=== PATIENT | female | born 1985 | race American Indian/Alaskan Native ===

== ENCOUNTER 2017-08-25 19:53 | Emergency (ER) | payer BC ==
[2017-08-25 20:43] VITALS: RESP 17; O2SAT 100
--- NOTE | 2017-08-25 20:51 | ED PDOC ---
Arrival/HPI - General Chief Complaint: Abdominal Pain Time Seen by Provider: 08/25/17 20:19 Historian: Patient - History of Present Illness Narrative History of Present Illness (Text): 08/25/17 20:47 31 year old female, whose PMH includes , who presents to the emergency department complaining of abdominal cramp like discomfort. Patient states her LMP was March and tested + for pregancy. Patient denies vaginal d/c and urinary complaints. No nausea, vomiting, diarrhea. Symptom Onset: Sudden Context: Home Past Medical History - Provider Review Nursing Documentation Reviewed: Yes - Infectious Disease Hx of Infectious Diseases: None - Psychiatric Hx Substance Use: No - Surgical History Hx Section: Yes - Anesthesia Hx Anesthesia: No Family/Social History - Physician Review Nursing Documentation Reviewed: Yes Family/Social History: Unknown Family HX Smoking Status: Never Smoked Hx Alcohol Use: No Hx Substance Use: No Allergies/Home Meds Allergies/Adverse Reactions: Allergies No Known Allergies Allergy (Verified 08/25/17 20:25) Home Medications: Home Meds Medication Instructions Recorded Confirmed No Known Home Med 08/25/17 08/25/17 Review of Systems - Physician Review All systems were reviewed & negative as marked: Yes - Review of Systems Constitutional: absent: Fevers Respiratory: absent: SOB Cardiovascular: absent: Chest Pain Gastrointestinal: Abdominal Pain Genitourinary Female: absent: Dysuria, Vaginal Discharge Musculoskeletal: absent: Arthralgias, Back Pain Skin: absent: Rash Neurological: absent: Headache Endocrine: absent: Diaphoresis Physical Exam Vital Signs Reviewed: Yes Vital Signs Temp Pulse Resp BP Pulse Ox 08/25/17 20:42 98.1 F 98 H 17 142/80 100 Temperature: Afebrile Blood Pressure: Normal Pulse: Tachycardic Respiratory Rate: Normal Appearance: Positive for: Well-Appearing, Non-Toxic, Comfortable Pain Distress: None Mental Status: Positive for: Alert and Oriented X 3 - Systems Exam Head: Present: Atraumatic, Normocephalic Pupils: Present: PERRL Extroacular Muscles: Present: EOMI Conjunctiva: Present: Normal Mouth: Present: Moist Mucous Membranes Neck: Present: Normal Range of Motion Respiratory/Chest: Present: Clear to Auscultation, Good Air Exchange. No: Respiratory Distress, Accessory Muscle Use Cardiovascular: Present: Regular Rate and Rhythm, Normal S1, S2. No: Murmurs Abdomen: Present: Normal Bowel Sounds. No: Tenderness, Distention, Peritoneal Signs, Rebound, Guarding Genitourinary/Pelvic Exam: Present: Normal External Genitalia, Cervical os Closed, Other (RN William present as factory expert). No: Vaginal Discharge, Cervical Motion Tendernes Upper Extremity: Present: Normal Inspection. No: Cyanosis, Edema Lower Extremity: Present: Normal Inspection, NORMAL PULSES, Normal ROM, Neurovascularly Intact, Capillary Refill < 2 s. No: Edema Neurological: Present: GCS=15, CN II-XII Intact, Speech Normal Skin: Present: Warm, Dry, Normal Color. No: Rashes Psychiatric: Present: Alert, Oriented x 3, Normal Insight, Normal Concentration Medical Decision Making ED Course and Treatment: 08/25/17 Impression: 31 year old female with unremarkable physical exam complaining of abdominal discomfort. Plan: -- Labs -- Urinalysis -- Ultrasound Age -- Reassess and disposition Progress Notes: 08/25/17 23:19 US Age shows: There is a live intrauterine . Measurements of the biparietal diameter, head circumference, abdominal circumference, femur length correspond to gestational age of 18 weeks 1 day. A heart rate of 155 beats per minute was obtained. Estimated weight of 225 g. The placenta is fundal in location and appears normal. The cervix measures 5.1 cm. The maternal ovaries are nonvisualized. IMPRESSION: Single live IUP. 08/25/17 23:51 Pelvic exam performed, cervical os closed, no vaginal d/c, and no cervical motion tenderness. LILIYA Thomas present as factory expert. - Lab Interpretations Lab Results: 08/25/17 20:51 08/25/17 20:51 Lab Results 08/25/17 21:15: Blood Type Confirm O POSITIVE 08/25/17 20:51: Blood Type O POSITIVE, Antibody Screen Negative, BBK History Checked No verified bt 08/25/17 20:51: WBC 8.7, RBC 4.61, Hgb 10.6 L, Hct 32.0 L, MCV 69.4 L, MCH 23.0 L, MCHC 33.1, RDW 15.4 H, Plt Count 295, MPV 9.7 08/25/17 20:51: Beta HCG, Quant 92600.00 H 08/25/17 20:51: Sodium 138, Potassium 3.6, Chloride 104, Carbon Dioxide 22, Anion Gap 16, BUN 11, Creatinine 0.5 L, Est GFR ( Amer) > 60, Est GFR ( Non-Af Amer) > 60, Random Glucose 91, Calcium 9.1, Total Bilirubin 0.2, AST 24, ALT 25, Alkaline Phosphatase 64, Total Protein 7.2, Albumin 3.9, Globulin 3.3, Albumin/Globulin Ratio 1.2 I have reviewed the lab results: Yes - RAD Interpretation Radiology Orders: 08/25/17 20:43 AGE [US] Stat Cell Attendant Helper: Radiologist - Scribe Statement The provider has reviewed the documentation as recorded by the Scribe Louise Reynolds Provider Scribe Attestation: All medical record entries made by the Scribe were at my direction and personally dictated by me. I have reviewed the chart and agree that the record accurately reflects my personal performance of the history, physical exam, medical decision making, and the department course for this patient. I have also personally directed, reviewed, and agree with the discharge instructions and disposition. Disposition/Present on Arrival - Present on Arrival Any Indicators Present on Arrival: No History of DVT/PE: No History of Uncontrolled Diabetes: No Urinary Catheter: No History of Decub. Ulcer: No History Surgical Site Infection Following: Orthopedic Procedures - Disposition Have Diagnosis and Disposition been Completed?: Yes Diagnosis: Second trimester , Abdominal pain in Disposition: HOME/ ROUTINE Disposition Time: 23:43 Patient Plan: Discharge Patient Problems: Current Active Problems Problem Status Onset Abdominal pain in Acute Second trimester Acute Condition: GOOD Additional Instructions: Rest/no strenuous physical activity/follow up with your biological science technician doctor this week/ any recurrent worsening symptoms return to the emergency room Referrals: PCP,NO [Primary Care Provider] - Follow up with primary Forms: [id number] (Martiniquais)
[2017-08-25 21:00] LABS: HEMOGLOBIN 10.6 g/dL (12.0-16.0); MEAN CELL VOLUME 69.4 fl (80.0-105.0); MEAN CORPUSCULAR HGB CONC 33.1 g/dl (31.0-37.0); MEAN PLATELET VOLUME 9.7 fl (7.0-11.0); RBC 4.61 10^6/uL (3.5-6.1); RED CELL DISTRIBUTION WIDTH 15.4 % (11.5-14.5); WHITE BLOOD COUNT 8.7 10^3/ul (4.5-11.0)
[2017-08-25 21:21] LABS: ALB/GLOB RATIO 1.2 (1.1-1.8); ALBUMIN 3.9 g/dL (3.0-4.8); ALT/SGPT 25 U/L (7-56); AST/SGOT 24 U/L (14-36); BLOOD UREA NITROGEN 11 mg/dL (7-21); CALCIUM 9.1 mg/dL (8.4-10.5); GFR AFRICAN-AMERICAN > 60; GFR NON-AFRICAN AMERICAN > 60
--- NOTE | 2017-08-25 23:01 | US ---
EXAM: US Transabd After First Trimester First Gest EXAM DATE/TIME: 08/25/2017 8:43 PM CLINICAL HISTORY: 31 years old, female; Pain; complicated by abdominal or pelvic pain; Lower; Second trimester; Gestational age or lmp: 18weeks; TECHNIQUE: Real-time ultrasound of the transabd after first trimester first gest with image documentation. COMPARISON: No relevant prior studies available. FINDINGS: There is a live intrauterine . Measurements of the biparietal diameter, head circumference, abdominal circumference, femur length correspond to gestational age of 18 weeks 1 day. A heart rate of 155 beats per minute was obtained. Estimated weight of 225 g. The placenta is fundal in location and appears normal. The cervix measures 5.1 cm. The maternal ovaries are nonvisualized. IMPRESSION: Single live IUP.
[2017-08-26 00:27] LABS: PH,URINE 6.5 (4.7-8.0); URINE BILIRUBIN NEGATIVE (NEGATIVE); URINE BLOOD NEGATIVE (NEGATIVE); URINE GLUCOSE (UA) NEGATIVE (NEGATIVE); URINE LEUKOCYTE ESTERASE NEGATIVE Leu/uL (NEGATIVE); URINE PROTEIN NEGATIVE mg/dL (<30 mg/dL); URINE UROBILINOGEN 0.2 E.U./dL (<1 E.U./dL)
[2017-08-26 00:31] LABS: URINE APPEARANCE CLEAR (CLEAR); URINE COLOR YELLOW (YELLOW)
[2017-08-26 00:32] LABS: HCG,QUALITATIVE URINE POSITIVE (NEGATIVE)
[2017-08-26 00:54] VITALS: BP 110/81; PULSE 89; TEMP 98.2
== END 2017-08-26 00:54 | disposition home or self-care (01) ==
LOC: MERGE 19:53 → ED 19:53
DX: O26.92 Pregnancy related conditions, unspecified, second trimester (principal); R10.9 Unspecified abdominal pain; Z3A.18 18 weeks gestation of pregnancy